=== PATIENT | male | born 1980 | race Caucasian/White ===

== ENCOUNTER 2017-05-27 14:00 | Emergency (ER) | payer OTHER ==
[2017-05-27 15:21] VITALS: BP 155/97
--- NOTE | 2017-05-27 15:54 | UC ---
Skin Complaint HPI - HPI Summary HPI Summary: 36 y/o male presents to the urgent care c/o of tick bite in his left axilla since yesterday that he was in [place] [facility]. His removed the tick this morning at 10:30am. It was engorged. He has mild redness around the tick bite. No pain. Pt denies Hx of tick bites, fever, SOB, body aches, JENKINS, chest pain, N/V /D. - History of Current Complaint Chief Complaint: UCSkin Time Seen by Provider: 05/27/17 15:51 Stated Complaint: TICK BITE Hx Obtained From: Patient Onset/Duration: Sudden Onset, Lasting Days - 1 day Skin Exposure Onset/Duration: Days Ago - 1 day Timing: Constant Onset Severity: Mild Current Severity: Mild Pain Intensity: 2 Pain Scale Used: 0-10 Numeric Location: Discrete - LF axilla Character: Redness Aggravating Factor(s): Nothing Alleviating Factor(s): Nothing Associated Signs & Symptoms: Positive: Negative. Negative: Fever, Tenderness, Joint Swelling Related History: Possible Reaction to: Insect - Allergy/Home Medications Allergies/Adverse Reactions: Allergies Allergy/AdvReac Type Severity Reaction Status Date / Time No Known Allergies Allergy Verified 05/27/17 15:20 Home Medications: Home Medications Sertraline* [Zoloft*] 100 mg PO DAILY 05/27/17 [History Confirmed 05/27/17] Review of Systems Constitutional: Negative Skin: Rash Eyes: Negative ENT: Negative Respiratory: Negative Cardiovascular: Negative Gastrointestinal: Negative Genitourinary: Negative Motor: Negative Neurovascular: Negative Musculoskeletal: Negative Neurological: Negative Psychological: Negative Is Patient Immunocompromised?: No All Other Systems Reviewed And Are Negative: Yes PMH/Surg Hx/FS Hx/Imm Hx Previously Healthy: Yes - PT denies PMHX - Surgical History Surgical History: Yes Surgery Procedure, Year, and Place: [place] - Family History Known Family History: Positive: Cardiac Disease, Hypertension, Diabetes Family History: Dyslipidemia - Social History Occupation: Employed Full-time Lives: With Family Alcohol Use: None Substance Use Type: None Smoking Status (MU): Never Smoked Tobacco Physical Exam Triage Information Reviewed: Yes Appearance: Well-Appearing, No Pain Distress, Well-Nourished, Obese Vital Signs: Initial Vital Signs Temp 98.1 F 05/27/17 15:16 Pulse 71 05/27/17 15:16 Resp 16 05/27/17 15:16 BP 155/97 05/27/17 15:16 Pulse Ox 97 05/27/17 15:16 Vital Signs Reviewed: Yes Eye Exam: Normal Eyes: Positive: Conjunctiva Clear - PERRLA, EOMI ENT Exam: Normal ENT: Positive: Normal ENT inspection, Hearing grossly normal, Pharynx normal, TMs normal Neck exam: Normal Neck: Positive: Supple, Nontender, No Lymphadenopathy Respiratory Exam: Normal Respiratory: Positive: Chest non-tender, Lungs clear, Normal breath sounds Cardiovascular Exam: Normal Cardiovascular: Positive: RRR, No Murmur, Pulses Normal Abdominal Exam: Normal Abdomen Description: Positive: Nontender, No Organomegaly, Soft. Negative: CVA Tenderness (R), CVA Tenderness (L) Bowel Sounds: Positive: Present Musculoskeletal Exam: Normal Musculoskeletal: Positive: Strength Intact, ROM Intact, No Edema Neurological Exam: Normal Psychological Exam: Normal Skin: Positive: rashes - Proximal medial aspect of Left upper arm with tick bite with sorrounding erythema, non tender to palpation. tick no longer present , no swelling or drainage observed. Course/Dx - Course Course Of Treatment: 36 y/o male presents to the urgent care c/o of tick bite in his left axilla since yesterday that he was in the [facility]. His removed the tick this morning at 10:30am. It was engorged. He has mild redness around the tick bite. No pain. Pt denies Hx of tick bites, fever, SOB, body aches, JENKINS, chest pain, N/V/D. Hx obtained. Antibiotic prophylaxis with Doxycycline PO given to the patient to prevent lyme Disease.. Pt tolerated well medication. Pt advised to observe the area for the development or Erythema Migrans for upto 30 days following exposure.Advised if he develops fever or erythema Migrans to return to the clinic or PCP for further treatment.Pt with elevated BP today, advised decrease salt in his diet and monitot BP and f/u with PCP. Pt understood and agreed with plan of care. - Differential Diagnoses - Skin Complaint Differential Diagnoses: Abscess, Cellulitis, Local Allergic Reaction, Lymphadenitis, Tick Born Illness, Urticaria - Diagnoses Provider Diagnoses: 1- Tick bite. 2- elevated BP w/o any HX of HTN Discharge - Discharge Plan Condition: Stable Disposition: HOME Prescriptions: Bacitracin OINTMENT* 1 applic TOPICAL TID #1 tube Patient Education Materials: Tick Bite (ED), Low Sodium Diet (ED) Referrals: OLE Farias [Primary Care Provider] - If Needed Additional Instructions: 1-Please apply topical Bacitracin as directed in the affected area 2- Please observe the area for the development or Erythema Migrans for upto 30 days following exposure. Components of the tick saliva can cause transient erythema that should not be confused with Erythema Migrans. 3-Antibiotic prophylaxis with Doxycycline was given to you today to prevent Lyme Disease. 4- Your BP today is elevated, please decrease salt in your diet, monitor your BP , if it continues to be elevated please f/y with your PCP for further management.
[2017-05-27] MEDS ORDERED: DOXYcycline CAP(*) 100 MG PO ONE (16:05)
== END 2017-05-27 16:15 | disposition home or self-care (01) ==
LOC: UCCORT 14:00
DX: S40.862A Insect bite (nonvenomous) of left upper arm, initial encounter (principal); W57.XXXA Bitten or stung by nonvenomous insect and other nonvenomous arthropods, initial encounter; Y92.9 Unspecified place or not applicable; R03.0 Elevated blood-pressure reading, without diagnosis of hypertension
CPT/HCPCS: 99212; A9270-GY; G0463